=== PATIENT | female | born 1965 | race Caucasian/White ===

== ENCOUNTER → 2017-01-30 | Outpatient (CLI) | payer BC ==
[~2017-01-30] MED LIST: /OMEP10CA PO; FLUO20CA8 PO; NAPR220C PO
[2017-01-30 10:29] LABS: BASO % 0.4 % (0.0-1.0); EOS # 0.1 10^3/uL (0.0-0.50); EOS % 1.5 % (0.0-3.0); IMMATURE GRANULOCYTE % 0.2 % (0-0); LYMPH # 1.7 10^3/uL (1.5-4.5); LYMPH % 32.4 % (24.0-44.0); MEAN CORPUSCULAR HEMOGLOBIN 32.5 pg (27.0-33.0); MEAN CORPUSCULAR HGB CONC 34.3 g/dl (32.0-36.5); MEAN CORPUSCULAR VOLUME 94.8 fl (80.0-96.0); MONO # 0.5 10^3/uL (0.0-0.8); MONO % 9.5 % (0.0-5.0); NEUTROPHILS # 2.9 10^3/uL (1.8-7.7); PLATELET COUNT, AUTOMATED 201 10^3/uL (150-450); RED CELL DISTRIBUTION WIDTH 13.3 % (11.5-14.5); WHITE BLOOD COUNT 5.2 10^3/uL (4.0-10.0)
[2017-01-30 11:13] LABS: ALBUMIN 3.7 GM/DL (3.2-5.2); ALBUMIN/GLOBULIN RATIO 1.16 (1.00-1.93); ALKALINE PHOSPHATASE 91 U/L (45-117); ALT/SGPT 30 U/L (12-78); ANION GAP 7 MEQ/L (8-16); AST/SGOT 18 U/L (7-37); BILIRUBIN,TOTAL 0.5 MG/DL (0.2-1.0); BLOOD UREA NITROGEN 12 MG/DL (7-18); CALCIUM LEVEL 8.7 MG/DL (8.5-10.1); CARBON DIOXIDE LEVEL 29 MEQ/L (21-32); CHLORIDE LEVEL 103 MEQ/L (98-107); CHOLESTEROL LEVEL 187 MG/DL (<200); CREATININE FOR GFR 0.65 MG/DL (0.55-1.02); GLOMERULAR FILTRATION RATE > 60.0 (>58); GLUCOSE, FASTING 91 MG/DL (70-105); POTASSIUM SERUM 4.7 MEQ/L (3.5-5.1); SODIUM LEVEL 139 MEQ/L (136-145); TOTAL PROTEIN 6.9 GM/DL (6.4-8.2); TRIGLYCERIDES LEVEL 75 MG/DL (<150)
[2017-01-30 11:27] LABS: PROLACTIN 6.9 NG/ML
== END ==
LOC: M LAB 09:56
PROVIDERS: ATTEND Family Medicine
DX: Z00.01 Encounter for general adult medical examination with abnormal findings (principal); N92.1 Excessive and frequent menstruation with irregular cycle

== ENCOUNTER → 2017-03-15 | Outpatient (CLI) | payer BC ==
[2017-03-15 12:57] LABS: ANION GAP 5 MEQ/L (8-16); BLOOD UREA NITROGEN 10 MG/DL (7-18); CALCIUM LEVEL 8.6 MG/DL (8.5-10.1); CARBON DIOXIDE LEVEL 27 MEQ/L (21-32); CHLORIDE LEVEL 106 MEQ/L (98-107); CREATININE FOR GFR 0.64 MG/DL (0.55-1.02); GLOMERULAR FILTRATION RATE > 60.0 (>58); GLUCOSE, FASTING 99 MG/DL (70-105); POTASSIUM SERUM 4.5 MEQ/L (3.5-5.1); SODIUM LEVEL 138 MEQ/L (136-145)
== END ==
LOC: M LAB 11:14
DX: F17.210 Nicotine dependence, cigarettes, uncomplicated (principal)
CPT/HCPCS: 80048

== ENCOUNTER 2017-03-19 12:21 | Emergency (ER) | payer BC ==
[2017-03-19] MEDS: METOPROLOL 5 MG/5 ML VIAL IV (13:30)
[2017-03-19] MEDS: ASPIRIN 81 MG CHEW TABLET PO (13:37)
[2017-03-19] MEDS: ALPRAZolam 0.25 MG TAB PO (13:40)
[2017-03-19] MEDS: NITROGLYCERIN 0.4 MG SUBL TABLET SL ×3 (13:41→13:52)
[2017-03-19 13:56] LABS: BASO % 0.6 % (0.0-1.0); EOS % 0.3 % (0.0-3.0); HEMATOCRIT 44.4 % (36.0-47.0); HEMOGLOBIN 15.5 g/dl (12.0-16.0); IMMATURE GRANULOCYTE % 0.3 % (0-0); MEAN CORPUSCULAR HEMOGLOBIN 32.9 pg (27.0-33.0); MEAN CORPUSCULAR HGB CONC 34.9 g/dl (32.0-36.5); MEAN CORPUSCULAR VOLUME 94.3 fl (80.0-96.0); MONO # 0.6 10^3/uL (0.0-0.8); MONO % 8.6 % (0.0-5.0); NEUTROPHILS # 4.5 10^3/uL (1.8-7.7); NEUTROPHILS % 62.2 % (36.0-66.0); PLATELET COUNT, AUTOMATED 208 10^3/uL (150-450); RED BLOOD COUNT 4.71 10^6/uL (4.00-5.40); WHITE BLOOD COUNT 7.2 10^3/uL (4.0-10.0)
[2017-03-19 13:58] LABS: VENOUS HCO3 25.2 MEQ/L (23.0-27.0); VENOUS O2 SATURATION 82.7 % (60.0-80.0); VENOUS PARTIAL PRESSURE CO2 35.3 mmHg (38.0-50.0); VENOUS PARTIAL PRESSURE O2 39.5 mmHg (30.0-50.0); VENOUS PH 7.472 UNITS (7.330-7.430); VENOUS STANDARD HCO3 25.9 MEQ/L; VENOUS TOTAL CO2 26.3 MEQ/L (24.0-28.0)
[2017-03-19 14:06] LABS: NT-PRO BNP 84 PG/ML (<125)
[2017-03-19 14:08] LABS: D-DIMER QUANT 430.9 ng/ml (<500)
[2017-03-19 14:09] LABS: ALBUMIN 4.3 GM/DL (3.2-5.2); ALBUMIN/GLOBULIN RATIO 1.39 (1.00-1.93); ALKALINE PHOSPHATASE 97 U/L (45-117); ALT/SGPT 27 U/L (12-78); ANION GAP 9 MEQ/L (8-16); AST/SGOT 17 U/L (7-37); BILIRUBIN,DIRECT 0.1 MG/DL (0.0-0.2); BILIRUBIN,TOTAL 0.4 MG/DL (0.2-1.0); BLOOD UREA NITROGEN 10 MG/DL (7-18); CALCIUM LEVEL 9.3 MG/DL (8.5-10.1); CARBON DIOXIDE LEVEL 24 MEQ/L (21-32); CHLORIDE LEVEL 103 MEQ/L (98-107); CPK CREATINE PHOSPHOKINASE 57 U/L (26-192); CREATININE FOR GFR 0.77 MG/DL (0.55-1.02); GLOMERULAR FILTRATION RATE > 60.0 (>58); GLUCOSE, FASTING 110 MG/DL (70-105); LIPASE 108 U/L (73-393); POTASSIUM SERUM 4.2 MEQ/L (3.5-5.1); SODIUM LEVEL 136 MEQ/L (136-145); TOTAL PROTEIN 7.4 GM/DL (6.4-8.2); TROPONIN I < 0.02 NG/ML (< 0.10)
[2017-03-19 14:15] LABS: MB/CK RELATIVE INDEX 1.75 (< OR =4)
== END 2017-03-19 16:10 | disposition home or self-care (01) ==
LOC: M ED 12:21
DX: I16.0 Hypertensive urgency (principal); F32.9 Major depressive disorder, single episode, unspecified; F17.210 Nicotine dependence, cigarettes, uncomplicated; Z88.0 Allergy status to penicillin; Z79.899 Other long term (current) drug therapy
CPT/HCPCS: 71046

== ENCOUNTER → 2017-04-16 | Outpatient (CLI) | payer BC | LOC: M RAD 08:54 | DX: R07.2 Precordial pain (principal) ==

== ENCOUNTER 2018-06-17 10:18 | Emergency (ER) | payer BC ==
[~2018-06-17] VITALS: Ht 157.5 cm; Wt 84.1 kg
[~2018-06-17 10:18] MED LIST changes: +AMLO5TAB6 PO; +CLAR10CA3 PO; +LISI10TA4 PO; +OMEP20CA3 PO; +PROZ10CA7 PO
[2018-06-17] MEDS ORDERED: PRIL20TA2 PO (10:31)
[2018-06-17] MEDS ORDERED: ONDANSETRON 4MG/2ML VIAL (J2405) IV ONE (10:45)
[2018-06-17] MEDS ORDERED: MORPHINE 4 MG/ML 1ML VIAL/SYRINGE (J2270) IV ONE (10:45)
[2018-06-17] MEDS ORDERED: NS 1,000 ML IV ONE (10:45)
[2018-06-17 11:26] LABS: BASO % 0.5 % (0.0-1.0); EOS # 0.1 10^3/uL (0.0-0.50); EOS % 0.8 % (0.0-3.0); HEMATOCRIT 43.7 % (36.0-47.0); HEMOGLOBIN 14.9 g/dl (12.0-15.5); LYMPH # 1.6 10^3/uL (1.5-4.5); LYMPH % 18.8 % (24.0-44.0); MEAN CORPUSCULAR HEMOGLOBIN 32.9 pg (27.0-33.0); MEAN CORPUSCULAR HGB CONC 34.1 g/dl (32.0-36.5); MEAN CORPUSCULAR VOLUME 96.5 fl (80.0-96.0); MONO # 0.7 10^3/uL (0.0-0.8); MONO % 8.1 % (0.0-5.0); NEUTROPHILS # 6.2 10^3/uL (1.8-7.7); NEUTROPHILS % 71.5 % (36.0-66.0); PLATELET COUNT, AUTOMATED 194 10^3/uL (150-450); RED BLOOD COUNT 4.53 10^6/uL (4.00-5.40); WHITE BLOOD COUNT 8.6 10^3/uL (4.0-10.0)
[2018-06-17 11:56] LABS: ALBUMIN 3.5 GM/DL (3.2-5.2); ALT/SGPT 64 U/L (12-78); BILIRUBIN,DIRECT 0.1 MG/DL (0.0-0.2); BILIRUBIN,TOTAL 0.4 MG/DL (0.2-1.0); BLOOD UREA NITROGEN 8 MG/DL (7-18); CALCIUM LEVEL 8.6 MG/DL (8.5-10.1); CARBON DIOXIDE LEVEL 27 MEQ/L (21-32); CHLORIDE LEVEL 106 MEQ/L (98-107); CREATININE FOR GFR 0.69 MG/DL (0.55-1.30); GLOMERULAR FILTRATION RATE > 60.0 (>51); GLUCOSE, FASTING 122 MG/DL (70-100); LIPASE 105 U/L (73-393); POTASSIUM SERUM 4.1 MEQ/L (3.5-5.1); SODIUM LEVEL 140 MEQ/L (136-145); TOTAL PROTEIN 6.9 GM/DL (6.4-8.2)
[2018-06-17] MEDS ORDERED: ISOVUE-370 76% 100ML VIAL (Q9967) As Ordered ONE (11:58)
[2018-06-17] MEDS ORDERED: LISINOPRIL 20 MG TAB PO ONE (12:15)
[2018-06-17] MEDS ORDERED: LISI-538 PO (12:46)
[2018-06-17 13:06] VITALS: BP 142/84
[2018-06-17 13:18] VITALS: BP 142/84
[2018-06-17 13:28] LABS: CHLAMYDIA DNA AMPLIFICATION NEGATIVE (NEGATIVE); GC DNA AMPLIFICATION NEGATIVE (NEGATIVE)
--- NOTE | 2018-06-17 13:33 | REP ---
CT of the abdomen and pelvis with IV contrast, without bowel contrast for appendicitis: There are tiny appendicoliths. The appendix is not distended. There is no periappendiceal inflammation or abscess. There is no CT evidence of acute appendicitis. There are no renal calculi. There are no ureteral calculi. There is no hydronephrosis. There is no perinephric stranding. There are no renal masses or cysts. There are no gallbladder calculi. The gallbladder is otherwise unremarkable. The terminal ileum is unremarkable. There is no bowel obstruction. There is no ascites. The mesentery is unremarkable. The bladder is unremarkable. The uterus is unremarkable. There is a 1.7 cm right ovarian follicle versus two adjacent smaller follicles. Left adnexa is unremarkable. The visualized lung schmidt are unremarkable. The hepatic parenchyma, gallbladder, pancreas and spleen are normal size unremarkable. The adrenals are unremarkable. The kidneys are unremarkable. Abdominal aorta is unremarkable. Bowel and mesentery are unremarkable. Pelvis: There is no ascites or adenopathy. The bladder, uterus and left adnexa are unremarkable. Right adnexal cyst as described. Impression: The appendix has a normal appearance by CT. There is a 17 mm right adnexal cyst versus two adjacent smaller cysts. No free fluid in the pelvis. The gallbladder is unremarkable. There is no renolithiasis or ureterolithiasis or hydronephrosis. No bowel obstruction. Otherwise, negative CT of the abdomen and pelvis. Electronically Signed by Hugo Herrera MD 06/17/2018 01:25 P
--- NOTE | 2018-06-17 21:35 | ECGEPIP ---
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
--- NOTE | 2018-06-18 14:19 | ED PDOC ---
Post-Departure Follow-Up [facility] faxed formal report of ct abd/p for fu Dg Patel MD Jun 18, 2018 14:18
== END 2018-06-17 13:25 | disposition home or self-care (01) ==
LOC: M ED 10:18
DX: I10 Essential (primary) hypertension (principal); N83.201 Unspecified ovarian cyst, right side; R10.9 Unspecified abdominal pain; F32.9 Major depressive disorder, single episode, unspecified; K21.9 Gastro-esophageal reflux disease without esophagitis; F17.210 Nicotine dependence, cigarettes, uncomplicated; Z79.899 Other long term (current) drug therapy; Z88.0 Allergy status to penicillin
CPT/HCPCS: 74177; 80048; 80076; 81001; 83690; 85025; 87040; 87210; 87491; 87591; 93005; 96374; 96375; 99284; J2270; J2405; Q9967

== ENCOUNTER 2018-10-27 10:02 | Emergency (ER) | payer BC ==
[~2018-10-27] VITALS: Ht 157.5 cm; Wt 79.5 kg
[~2018-10-27 10:02] MED LIST changes: +LISI-538 PO; -OMEP20CA3 PO; +OMEP20CA4 PO; +PRIL20TA2 PO
[2018-10-27 11:28] LABS: BASO # 0.1 10^3/uL (0.0-0.2); BASO % 0.6 % (0.0-1.0); EOS % 0.1 % (0.0-3.0); HEMATOCRIT 44.6 % (36.0-47.0); HEMOGLOBIN 15.4 g/dl (12.0-15.5); LYMPH % 12.8 % (24.0-44.0); MEAN CORPUSCULAR HEMOGLOBIN 34.2 pg (27.0-33.0); MEAN CORPUSCULAR HGB CONC 34.5 g/dl (32.0-36.5); MEAN CORPUSCULAR VOLUME 99.1 fl (80.0-96.0); MONO # 0.7 10^3/uL (0.0-0.8); MONO % 8.6 % (0.0-5.0); NEUTROPHILS # 6.2 10^3/uL (1.8-7.7); NEUTROPHILS % 77.7 % (36.0-66.0); PLATELET COUNT, AUTOMATED 190 10^3/uL (150-450)
[2018-10-27 11:50] LABS: INR 0.97; PROTHROMBIN TIME 12.6 SECONDS (11.8-14.0)
[2018-10-27 11:51] LABS: PARTIAL THROMBOPLASTIN TIME 32.6 SECONDS (25.0-38.4)
[2018-10-27 12:06] LABS: ALBUMIN 3.7 GM/DL (3.2-5.2); ALT/SGPT 62 U/L (12-78); BILIRUBIN,DIRECT 0.2 MG/DL (0.0-0.2); BILIRUBIN,TOTAL 0.4 MG/DL (0.2-1.0); BLOOD UREA NITROGEN 9 MG/DL (7-18); CALCIUM LEVEL 9.5 MG/DL (8.5-10.1); CARBON DIOXIDE LEVEL 27 MEQ/L (21-32); CHLORIDE LEVEL 103 MEQ/L (98-107); CK-MB VALUE MASS 2.5 NG/ML (<3.6); CPK CREATINE PHOSPHOKINASE 88 U/L (26-192); CREATININE FOR GFR 0.67 MG/DL (0.55-1.30); FREE T4 0.64 NG/DL (0.76-1.46); GLOMERULAR FILTRATION RATE > 60.0 (>51); GLUCOSE, FASTING 109 MG/DL (70-100); LIPASE 125 U/L (73-393); MB/CK RELATIVE INDEX 2.84 (< OR =4); NT-PRO BNP 97 PG/ML (<125); POTASSIUM SERUM 3.9 MEQ/L (3.5-5.1); SODIUM LEVEL 138 MEQ/L (136-145); TOTAL PROTEIN 6.9 GM/DL (6.4-8.2); TROPONIN I < 0.02 NG/ML (< 0.10)
[2018-10-27 13:30] VITALS: BP 141/58
[2018-10-27] MEDS ORDERED: LISI-538 PO (14:01)
--- NOTE | 2018-10-27 15:58 | REP ---
MRA of the brain without contrast Clinical indication: Abnormal CT. Comparison: None Technique: 3D MRA of the brain was performed without contrast. Spin and tumble MIP imaging was obtained. Findings: The distal ICAs, proximal ACAs, MCAs and master electrician are patent. The distal vertebral arteries and basilar artery are patent. The anterior communicating artery is patent. A right posterior communicating artery is patent. The left posterior communicating artery is not seen. There is no evidence of cerebrovascular occlusion or aneurysmal formation. Impression: Normal MRA of the brain without contrast. Electronically Signed by Gabriela Caballero MD 10/27/2018 01:36 P
--- NOTE | 2018-10-27 15:59 | REP ---
MRI of the brain without contrast Indication: Abnormal CT. Comparison: CT head of 10/27/2018. Technique: MRI of the brain was performed without contrast utilizing sagittal T1 FLAIR and axial T2, FLAIR, T1, DWI and gradient imaging. Findings: There is no restricted diffusion to suggest acute ischemia or infarction. Specifically, there is no restricted effusion within the brainstem to correlate with finding on CT, likely artifactual. There is a punctate focus of T2 hyperintensity within the basal ganglia which is nonspecific but could represent a chronic lacunar infarct. There is no mass effect. There is no midline shift or basal cistern effacement. There is no extra-axial fluid collection. The visualized flow voids are patent. There is mild mucosal thickening of the ethmoid air cells bilaterally. There is mild mucosal thickening of the right sphenoid sinus. Impression: No acute ischemia or infarction. Nonspecific white matter changes within the right basal ganglia which could represent chronic lacunar infarct. Electronically Signed by Gabriela Caballero MD 10/27/2018 01:29 P
--- NOTE | 2018-10-27 16:00 | REP ---
CT of the head without contrast Indication: CVA. Comparison: None Technique: Axial CT of the head was performed without contrast. Findings: There is streak artifact related to patient's right earring which partially degrees image quality. Within this limitation, there is no evidence of acute intracranial hemorrhage. There is no mass effect. The ventricles and sulci are symmetric. There is no hydrocephalus. There is a tiny hypodensity within the right basal ganglial which could represent a prominent perivascular space or tiny lacunar infarct. There are mild scattered hypodensities within the periventricular white matter which are nonspecific but suggestive of microvascular ischemic disease. There is a right-sided hypodensity within the elsie which is thought to be related to beam hardening through the posterior fossa. Impression: 1. Hypodensity within the right side elsie which is thought to represent beam hardening artifact however, if posterior fossa stroke is suspected, recommend MRI. No acute intracranial hemorrhage. 2. Tiny hypodensity in the right basal ganglia likely the perivascular space or lacunar infarct. 3. Scattered nonspecific white matter changes. Electronically Signed by Gabriela Caballero MD 10/27/2018 10:57 A
--- NOTE | 2018-10-27 16:56 | REP ---
CHEST, SINGLE VIEW: There is no evidence of acute infiltrate. No pleural effusion is seen. The heart is normal in size. The mediastinal silhouette is unremarkable. The visualized osseous structures are intact. IMPRESSION: No acute pulmonary disease. Electronically Signed by Hugo Ng MD 10/28/2018 11:34 P
--- NOTE | 2018-10-28 08:07 | ECGEPIP ---
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
== END 2018-10-27 14:30 | disposition home or self-care (01) ==
LOC: M ED 10:02
DX: R07.89 Other chest pain (principal); R20.2 Paresthesia of skin; R00.0 Tachycardia, unspecified; R93.0 Abnormal findings on diagnostic imaging of skull and head, not elsewhere classified; I10 Essential (primary) hypertension; F32.9 Major depressive disorder, single episode, unspecified; Z72.0 Tobacco use; Z79.899 Other long term (current) drug therapy; Z88.0 Allergy status to penicillin

== ENCOUNTER → 2018-10-31 | Outpatient (CLI) | payer BC, SELFPAY ==
--- NOTE | 2018-10-31 18:38 | REPVR ---
EXAM: MR Head Without Contrast EXAM DATE/TIME: 10/31/2018 4:47 PM CLINICAL HISTORY: 53 years old, female; Weakness, extremity; Patient HX: Right arm weakness and pain in RT foot for 3 days. PT was seen for same symptoms in ED 3 days prior, images on pacs TECHNIQUE: Imaging protocol: MR of the head without contrast. COMPARISON: MRI-Brain without Contrast 10/27/2018 12:21 PM FINDINGS: Brain: No acute infarct identified on the diffusion weighted imaging. No parenchymal hemorrhage. No evidence of brain parenchymal edema or intracranial mass effect. There is a focal, chronic lacunar infarct in the posterior right lentiform nucleus, as before. Punctate focus of increased signal intensity in the right external capsule may reflect trace chronic small vessel ischemic change, this finding is stable. No significant white matter disease for the patient's age. Ventricles: Stable. No ventriculomegaly. Bones/joints: Unremarkable. Soft tissues: Unremarkable. Sinuses: Trace ethmoid and maxillary sinus mucosal thickening. Tiny right sphenoid sinus retention cyst or polyp. Mastoid air cells: Focal right mastoid fluid. No significant mastoid effusions. Orbits: Unremarkable. IMPRESSION: No evidence of acute infarct. No significant interval change. Electronically signed by: Halle Gore On 10/31/2018 18:38:38 PM
== END ==
LOC: M PLARAD 15:26
PROVIDERS: ATTEND Family Medicine
DX: R29.898 Other symptoms and signs involving the musculoskeletal system (principal)

== ENCOUNTER → 2018-11-07 | Outpatient (REF) | payer BC, OTHER ==
[2018-11-07 13:01] LABS: ALBUMIN 3.7 GM/DL (3.2-5.2); ALT/SGPT 56 U/L (12-78); BILIRUBIN,TOTAL 0.5 MG/DL (0.2-1.0); BLOOD UREA NITROGEN 10 MG/DL (7-18); CALCIUM LEVEL 9.6 MG/DL (8.5-10.1); CARBON DIOXIDE LEVEL 32 MEQ/L (21-32); CHLORIDE LEVEL 103 MEQ/L (98-107); CHOLESTEROL LEVEL 212 MG/DL (<200); CHOLESTEROL RISK RATIO 2.465 (<5); GLOMERULAR FILTRATION RATE > 60.0 (>51); GLUCOSE, FASTING 110 MG/DL (70-100); HDL CHOLESTEROL 86 MG/DL (>40); LDL CHOLESTEROL 112 MG/DL (<100); NON-HDL-C 126 MG/DL; POTASSIUM SERUM 4.7 MEQ/L (3.5-5.1); SODIUM LEVEL 139 MEQ/L (136-145); TOTAL PROTEIN 6.8 GM/DL (6.4-8.2); TRIGLYCERIDES LEVEL 70 MG/DL (<150)
== END ==
LOC: M SFHCPLAZ 08:54
PROVIDERS: ATTEND Family Medicine
DX: Z13.1 Encounter for screening for diabetes mellitus (principal); Z13.220 Encounter for screening for lipoid disorders; R19.7 Diarrhea, unspecified

== ENCOUNTER → 2018-11-26 | Outpatient (REF) | payer BC ==
[~2018-11-26] MED LIST changes: +ASPI-1 PO; +ATOR1TAB21 PO; +PROZ20CA11 PO
[2018-11-26 14:06] LABS: FOLATE 5.7 NG/ML
[2018-12-02 00:14] LABS: ANCA-ATYPICAL <1:20 titer (Neg:<1:20); ANTI DS-DNA AB <1:10 titer (.); ANTI THROMBIN 3 ANTIGEN IMMUNO 86 % (72-124); ANTI THROMBIN 3 FUNCT ACTIVITY 100 % (75-135); ANTINUCLEAR ANTIBODIES DIRECT Negative (Negative); CARDIOLIPIN IGA ANTIBODY <9 APL U/mL (0-11); CARDIOLIPIN IGG ANTIBODY <9 GPL U/mL (0-14); CARDIOLIPIN IGM ANTIBODY 25 MPL U/mL (0-12); CERULOPLASMIN 29.4 mg/dL (19.0-39.0); COPPER PLASMA 135 ug/dL (72-166); CYTOPLASMIC NEUTROP AB ANCA-C <1:20 titer (Neg:<1:20); PERINUCLEAR AB ANCA-P <1:20 titer (Neg:<1:20); PROTEIN C FUNCTIONAL ACTIVITY 108 % (73-180); PROTEIN S FUNCTIONAL ACTIVITY 106 % (63-140); SJOGREN'S ANTI SS-A <0.2 AI (0.0-0.9); SJOGREN'S ANTI SS-B <0.2 AI (0.0-0.9); VITAMIN B1 LEVEL WHOLE BLOOD 102.4 nmol/L (66.5-200.0); VITAMIN B6,PYRIDOXAL PHOSPHATE 8.3 ug/L (2.0-32.8); VITAMIN E(ALPHA TOCOPHEROL) 9.7 mg/L (7.0-25.1); VITAMIN E(GAMMA TOCOPHEROL) 0.9 mg/L (0.5-5.5)
[2018-12-02 09:40] LABS: DRVV SCREEN 38.1 SEC
[2018-12-02 10:06] LABS: PTT LUPUS TYPE ANTICOAG SCREEN 0.9 (0-1.2)
== END ==
LOC: M LABNEURO 09:26
PROVIDERS: ATTEND Psychiatry & Neurology Neurology
DX: R53.1 Weakness (principal); R20.2 Paresthesia of skin

== ENCOUNTER → 2020-04-04 | Outpatient (REF) | payer OTHER ==
[~2020-04-04] MED LIST changes: +AMLO1TAB24 PO; -AMLO5TAB6 PO; +OMEP1CAP73 PO; -OMEP20CA4 PO
[2020-04-04 14:40] LABS: BLOOD UREA NITROGEN 17 MG/DL (7-18); CALCIUM LEVEL 9.7 MG/DL (8.5-10.1); CARBON DIOXIDE LEVEL 32 MEQ/L (21-32); CHLORIDE LEVEL 101 MEQ/L (98-107); CREATININE FOR GFR 0.67 MG/DL (0.55-1.30); GLOMERULAR FILTRATION RATE > 60.0 (>51); GLUCOSE, FASTING 101 MG/DL (70-100); POTASSIUM SERUM 4.6 MEQ/L (3.5-5.1); SODIUM LEVEL 137 MEQ/L (136-145)
== END ==
LOC: M SFHCPLAZ 11:10
PROVIDERS: ATTEND Family Medicine
DX: I10 Essential (primary) hypertension (principal)

== ENCOUNTER → 2021-02-10 | Outpatient (CLI) | payer OTHER ==
[~2021-02-10] MED LIST changes: -LISI-538 PO; +LISI10TA22 PO; -LISI10TA4 PO; +LISI20TA33 PO
[2021-02-10 13:31] LABS: HEMATOCRIT 40.9 % (36.0-47.0); HEMOGLOBIN 13.5 g/dl (12.0-15.5); MEAN CORPUSCULAR HEMOGLOBIN 32.5 pg (27.0-33.0); MEAN CORPUSCULAR VOLUME 98.3 fl (80.0-96.0); PLATELET COUNT, AUTOMATED 238 10^3/uL (150-450); RED BLOOD COUNT 4.16 10^6/uL (4.00-5.40); WHITE BLOOD COUNT 6.9 10^3/uL (4.0-10.0)
[2021-02-10 14:12] LABS: ALBUMIN 3.9 GM/DL (3.2-5.2); ALT/SGPT 22 U/L (12-78); BILIRUBIN,TOTAL 0.2 MG/DL (0.2-1.0); BLOOD UREA NITROGEN 12 MG/DL (7-18); CALCIUM LEVEL 9.4 MG/DL (8.5-10.1); CARBON DIOXIDE LEVEL 30 MEQ/L (21-32); CHLORIDE LEVEL 106 MEQ/L (98-107); CHOLESTEROL LEVEL 206 MG/DL (<200); CHOLESTEROL RISK RATIO 2.783 (<5); CREATININE FOR GFR 0.71 MG/DL (0.55-1.30); GLOMERULAR FILTRATION RATE > 60.0 (>51); GLUCOSE, FASTING 99 MG/DL (70-100); HDL CHOLESTEROL 74 MG/DL (>40); LDL CHOLESTEROL 116 MG/DL (<100); NON-HDL-C 132 MG/DL; POTASSIUM SERUM 4.9 MEQ/L (3.5-5.1); SODIUM LEVEL 140 MEQ/L (136-145); TOTAL PROTEIN 6.6 GM/DL (6.4-8.2); TRIGLYCERIDES LEVEL 80 MG/DL (<150)
[2021-02-10 14:16] LABS: ATYPICAL LYMPH 7 % (0-5); LYMPHOCYTES 22 % (16-44); MONOCYTES 4 % (0-5); NEUTROPHILS 67 % (28-66); PLATELET ESTIMATE NORMAL (NORMAL)
== END ==
LOC: M PLAIMG 10:22
PROVIDERS: ATTEND Nurse Practitioner Family
DX: M51.37 Other intervertebral disc degeneration, lumbosacral region (principal); I10 Essential (primary) hypertension; E78.5 Hyperlipidemia, unspecified

== ENCOUNTER → 2021-04-11 | Outpatient (CLI) | payer OTHER | LOC: M WHC 07:46 | PROVIDERS: ATTEND Nurse Practitioner Family | DX: Z12.31 Encounter for screening mammogram for malignant neoplasm of breast (principal); Z80.3 Family history of malignant neoplasm of breast ==

== ENCOUNTER → 2021-05-17 | Outpatient (REF) | payer OTHER | LOC: M SFHCPLAZ 12:37 | PROVIDERS: ATTEND Physician Assistant | DX: R50.9 Fever, unspecified (principal) ==

== ENCOUNTER → 2021-06-02 | Outpatient (CLI) | payer OTHER ==
[~2021-06-02] MED LIST changes: +APAP325T4 PO; +FLUO40CA PO; +FLUTISP; +OMEP40CA5 PO
== END ==
LOC: M RAD 07:05
PROVIDERS: ATTEND Physician Assistant Medical
DX: R10.10 Upper abdominal pain, unspecified (principal); R16.2 Hepatomegaly with splenomegaly, not elsewhere classified

== ENCOUNTER → 2021-06-05 | Outpatient (CLI) | payer OTHER | LOC: M LABSMTC 09:19 | PROVIDERS: ATTEND Anesthesiology | DX: Z20.828 Contact with and (suspected) exposure to other viral communicable diseases (principal); Z11.59 Encounter for screening for other viral diseases ==

== ENCOUNTER 2021-06-09 06:45 | Day surgery (SDC) | payer OTHER ==
[~2021-06-09] VITALS: Ht 157.5 cm; Wt 87.5 kg
[~2021-06-09 06:45] MED LIST changes: +NS 1,000 ML IV ONE
[2021-06-09] MEDS ORDERED: fentaNYL 100 MCG/2 ML INJECTION As Ordered ONE (07:12)
[2021-06-09] MEDS ORDERED: LIDOCAINE 2% 100MG/5ML SDV (FOR ANES.) As Ordered ONE (07:12)
[2021-06-09] MEDS ORDERED: propofoL 200 MG/20 ML VIAL As Ordered ONE ×2 (07:12→08:02)
[2021-06-09 08:45] VITALS: BP 181/79
== END 2021-06-09 08:50 | disposition home or self-care (01) ==
LOC: M OPP 06:45
PROVIDERS: ATTEND Internal Medicine Gastroenterology
DX: Z12.11 Encounter for screening for malignant neoplasm of colon (principal); Z80.0 Family history of malignant neoplasm of digestive organs; K63.5 Polyp of colon; K64.8 Other hemorrhoids; K22.89 Other specified disease of esophagus; K44.9 Diaphragmatic hernia without obstruction or gangrene; K22.2 Esophageal obstruction; K29.50 Unspecified chronic gastritis without bleeding; Z88.0 Allergy status to penicillin; Z80.41 Family history of malignant neoplasm of ovary; Z80.3 Family history of malignant neoplasm of breast; Z79.82 Long term (current) use of aspirin; F17.210 Nicotine dependence, cigarettes, uncomplicated; Z86.73 Personal history of transient ischemic attack (TIA), and cerebral infarction without residual deficits
CPT/HCPCS: 43239; 45385; 88104; 88305; 88312; J3010

== ENCOUNTER → 2021-08-04 | Outpatient (CLI) | payer OTHER ==
[~2021-08-04] MED LIST changes: -NS 1,000 ML IV ONE
[2021-08-04 11:48] LABS: BLOOD UREA NITROGEN 13 MG/DL (7-18); CALCIUM LEVEL 9.3 MG/DL (8.5-10.1); CARBON DIOXIDE LEVEL 29 MEQ/L (21-32); CHLORIDE LEVEL 103 MEQ/L (98-107); CREATININE FOR GFR 0.64 MG/DL (0.55-1.30); GLOMERULAR FILTRATION RATE > 60.0 (>51); GLUCOSE, FASTING 96 MG/DL (70-100); POTASSIUM SERUM 4.4 MEQ/L (3.5-5.1); SODIUM LEVEL 138 MEQ/L (136-145)
== END ==
LOC: M PLALAB 09:04
PROVIDERS: ATTEND Family Medicine
DX: Z12.4 Encounter for screening for malignant neoplasm of cervix (principal); I10 Essential (primary) hypertension; R87.610 Atypical squamous cells of undetermined significance on cytologic smear of cervix (ASC-US)

== ENCOUNTER → 2022-05-04 | Outpatient (CLI) | payer OTHER ==
[2022-05-04 14:42] LABS: ALBUMIN 3.9 G/DL (3.2-5.2); ALKALINE PHOSPHATASE 100 U/L (46-116); ALT/SGPT 25 U/L (7.0-40); AST/SGOT 15 U/L (<34); BILIRUBIN,TOTAL 0.3 MG/DL (0.3-1.2); BLOOD UREA NITROGEN 10 MG/DL (9-23); CARBON DIOXIDE LEVEL 33 MMOL/L (20-31); CHLORIDE LEVEL 101 MMOL/L (98-107); CHOLESTEROL LEVEL 176 MG/DL (<200); CHOLESTEROL RISK RATIO 2.65 (<5); CREATININE FOR GFR 0.59 MG/DL (0.55-1.30); GLOMERULAR FILTRATION RATE > 60.0 (>51); GLUCOSE, FASTING 102 MG/DL (60-100); HDL CHOLESTEROL 66.2 MG/DL (>40); LDL CHOLESTEROL 93.6 MG/DL (<100); NON-HDL-C 110 MG/DL; POTASSIUM SERUM 4.8 MMOL/L (3.5-5.1); SODIUM LEVEL 137 MMOL/L (136-145); THYROID STIMULATING HORMONE 0.725 uIU/ML (0.55-4.78); TOTAL PROTEIN 6.9 G/DL (5.7-8.2); TRIGLYCERIDES LEVEL 81 MG/DL (<150)
[2022-05-04 14:43] LABS: BASO # 0.1 10^3/uL (0.0-0.2); BASO % 0.5 % (0.0-1.0); EOS # 0.1 10^3/uL (0.0-0.5); EOS % 0.8 % (0.0-3.0); HEMATOCRIT 45.2 % (36.0-47.0); HEMOGLOBIN 14.8 g/dl (12.0-15.5); LYMPH # 2.5 10^3/uL (1.5-5.0); LYMPH % 25.6 % (24.0-44.0); MEAN CORPUSCULAR HEMOGLOBIN 33.1 pg (27.0-33.0); MEAN CORPUSCULAR HGB CONC 32.7 g/dl (32.0-36.5); MEAN CORPUSCULAR VOLUME 101.1 fl (80.0-96.0); MONO # 0.8 10^3/uL (0.0-0.8); NEUTROPHILS # 6.4 10^3/uL (1.5-8.5); NEUTROPHILS % 64.9 % (36.0-66.0); PLATELET COUNT, AUTOMATED 231 10^3/uL (150-450); RED BLOOD COUNT 4.47 10^6/uL (4.00-5.40); WHITE BLOOD COUNT 9.8 10^3/uL (4.0-10.0)
[2022-05-07 08:37] LABS: VITAMIN B12 LEVEL 549 PG/ML (211-911)
== END ==
LOC: M PLALAB 10:34
PROVIDERS: ATTEND Physician Assistant
DX: R10.11 Right upper quadrant pain (principal); D75.89 Other specified diseases of blood and blood-forming organs; Z13.220 Encounter for screening for lipoid disorders

== ENCOUNTER → 2022-05-21 | Outpatient (CLI) | payer OTHER | LOC: M WHC 07:29 | PROVIDERS: ATTEND Physician Assistant | DX: R10.11 Right upper quadrant pain (principal) ==

== ENCOUNTER → 2022-05-31 | Outpatient (CLI) | payer OTHER | LOC: M RAD 07:17 | PROVIDERS: ATTEND Physician Assistant | DX: Z12.2 Encounter for screening for malignant neoplasm of respiratory organs (principal); F17.200 Nicotine dependence, unspecified, uncomplicated ==

== ENCOUNTER 2022-07-12 10:57 | Day surgery (SDC) | payer OTHER ==
[~2022-07-12] VITALS: Ht 157.5 cm; Wt 88.9 kg
[~2022-07-12 10:57] MED LIST changes: +FLUT50SP17; -FLUTISP; +NS 1,000 ML IV ONE
[2022-07-12] MEDS ORDERED: fentaNYL 100 MCG/2 ML INJECTION As Ordered ONE (12:47)
[2022-07-12] MEDS ORDERED: propofoL 200 MG/20 ML VIAL As Ordered ONE ×2 (12:47→12:55)
[2022-07-12] MEDS ORDERED: LIDOCAINE 2% 100MG/5ML SDV (FOR ANES.) As Ordered ONE (12:47)
[2022-07-12 13:25] VITALS: BP 145/79
== END 2022-07-12 13:50 | disposition home or self-care (01) ==
LOC: M OPP 10:57
PROVIDERS: ATTEND Internal Medicine Gastroenterology
DX: Z86.010 Personal history of colon polyps (principal); D12.6 Benign neoplasm of colon, unspecified; Z80.0 Family history of malignant neoplasm of digestive organs; K64.4 Residual hemorrhoidal skin tags; K64.8 Other hemorrhoids; K57.30 Diverticulosis of large intestine without perforation or abscess without bleeding; K44.9 Diaphragmatic hernia without obstruction or gangrene; K22.89 Other specified disease of esophagus; K22.2 Esophageal obstruction; K31.89 Other diseases of stomach and duodenum; F17.200 Nicotine dependence, unspecified, uncomplicated; Z79.82 Long term (current) use of aspirin; Z79.899 Other long term (current) drug therapy; Z88.0 Allergy status to penicillin
CPT/HCPCS: 43239; 43249; 45385; 88305; J3010

== ENCOUNTER → 2022-10-31 | Outpatient (CLI) | payer OTHER ==
[~2022-10-31] MED LIST changes: -NS 1,000 ML IV ONE
== END ==
LOC: M PLAIMG 12:34
PROVIDERS: ATTEND Physician Assistant
DX: M25.471 Effusion, right ankle (principal)

== ENCOUNTER → 2022-11-09 | Outpatient (CLI) | payer OTHER | LOC: M PLAIMG 14:21 | PROVIDERS: ATTEND Physician Assistant | DX: M79.671 Pain in right foot (principal) ==

== ENCOUNTER → 2022-12-14 | Outpatient (CLI) | payer OTHER ==
[~2022-12-14] MED LIST changes: +GASTROGRAFIN SOLUTION 30ML As Ordered ONE; +ISOVUE-370 76% 100ML VIAL As Ordered ONE
== END ==
LOC: M RAD 12:00
PROVIDERS: ATTEND Physician Assistant
DX: R10.817 Generalized abdominal tenderness (principal)
CPT/HCPCS: 74160; Q9963; Q9967

== ENCOUNTER → 2022-12-18 | Outpatient (REF) | payer OTHER ==
[~2022-12-18] MED LIST changes: -GASTROGRAFIN SOLUTION 30ML As Ordered ONE; -ISOVUE-370 76% 100ML VIAL As Ordered ONE
== END ==
LOC: M SFHCDERM 18:16
PROVIDERS: ATTEND Nurse Practitioner Family
DX: D49.2 Neoplasm of unspecified behavior of bone, soft tissue, and skin (principal)

== ENCOUNTER → 2023-09-16 | Outpatient (REF) | payer OTHER ==
[~2023-09-16] MED LIST changes: -FLUT50SP17; +FLUTISP
== END ==
LOC: M SFHCDERM 18:06
PROVIDERS: ATTEND Nurse Practitioner Family
DX: I78.1 Nevus, non-neoplastic (principal); R23.8 Other skin changes

== ENCOUNTER → 2023-12-18 | Outpatient (REF) | payer OTHER ==
[2023-12-20 14:37] LABS: HPV APTIMA Not Detected (Not Detected)
== END ==
LOC: M SFHCWAGY 13:13
PROVIDERS: ATTEND Nurse Practitioner Family
DX: Z12.4 Encounter for screening for malignant neoplasm of cervix (principal)

== ENCOUNTER → 2024-01-09 | Outpatient (CLI) | payer OTHER | LOC: M WHC 08:05 | PROVIDERS: ATTEND Nurse Practitioner Family | DX: Z12.31 Encounter for screening mammogram for malignant neoplasm of breast (principal) ==

== ENCOUNTER → 2024-03-26 | Outpatient (CLI) | payer OTHER ==
[2024-03-26 17:23] LABS: ALBUMIN 4.1 G/DL (3.2-5.2); ALKALINE PHOSPHATASE 83 U/L (35-104); ALT/SGPT 23 U/L (7.0-40); AST/SGOT 17 U/L (<34); BILIRUBIN,TOTAL 0.4 MG/DL (0.3-1.2); BLOOD UREA NITROGEN 11 MG/DL (9-23); CALCIUM LEVEL 9.5 MG/DL (8.5-10.1); CARBON DIOXIDE LEVEL 30 MMOL/L (20-31); CHLORIDE LEVEL 101 MMOL/L (98-107); CHOLESTEROL LEVEL 213 MG/DL (<200); CHOLESTEROL RISK RATIO 2.84 (<5); CREATININE FOR GFR 0.61 MG/DL (0.55-1.30); GLOMERULAR FILTRATION RATE > 60.0 (>51); GLUCOSE, FASTING 99 MG/DL (60-100); HDL CHOLESTEROL 74.8 MG/DL (>40); LDL CHOLESTEROL 122.6 MG/DL (<100); NON-HDL-C 138.2 MG/DL; POTASSIUM SERUM 4.6 MMOL/L (3.5-5.1); SODIUM LEVEL 138 MMOL/L (136-145); TOTAL PROTEIN 7.5 G/DL (5.7-8.2); TRIGLYCERIDES LEVEL 78 MG/DL (<150)
[2024-03-26 17:37] LABS: BASO % 0.6 % (0.0-1.0); EOS % 0.6 % (0.0-3.0); HEMATOCRIT 46.1 % (36.0-47.0); HEMOGLOBIN 15.9 g/dl (12.0-15.5); LYMPH # 2.1 10^3/uL (1.5-5.0); LYMPH % 30.7 % (24.0-44.0); MEAN CORPUSCULAR HEMOGLOBIN 34.2 pg (27.0-33.0); MEAN CORPUSCULAR HGB CONC 34.5 g/dl (32.0-36.5); MEAN CORPUSCULAR VOLUME 99.1 fl (80.0-96.0); MONO # 0.5 10^3/uL (0.0-0.8); NEUTROPHILS # 4.1 10^3/uL (1.5-8.5); NEUTROPHILS % 59.8 % (36.0-66.0); RED BLOOD COUNT 4.65 10^6/uL (4.00-5.40); WHITE BLOOD COUNT 6.8 10^3/uL (4.0-10.0)
[2024-03-26 17:38] LABS: PLATELET COUNT, AUTOMATED 97 10^3/uL (150-450)
== END ==
LOC: M LRY 08:07
PROVIDERS: ATTEND Registered Nurse
DX: I10 Essential (primary) hypertension (principal); Z13.220 Encounter for screening for lipoid disorders

== ENCOUNTER 2024-04-15 10:29 | Emergency (ER) | payer OTHER ==
[~2024-04-15] VITALS: Ht 160 cm; Wt 84.9 kg
[2024-04-15] MEDS ORDERED: ROSU10TA61 (10:37)
[2024-04-15] MEDS ORDERED: ESCITALOPRAM (10:37)
[2024-04-15] MEDS ORDERED: ASPI81CH33 PO (10:37)
[2024-04-15] MEDS: IBUPROFEN 600MG TAB PO ONE (13:01)
[2024-04-15] MEDS ORDERED: LIDO5DIS41 TOP (14:10)
[2024-04-15 14:28] VITALS: BP 190/90; TEMP 97.4; O2SAT 100
== END 2024-04-15 14:33 | disposition home or self-care (01) ==
LOC: M ED 10:29
DX: S39.012A Strain of muscle, fascia and tendon of lower back, initial encounter (principal); D17.72 Benign lipomatous neoplasm of other genitourinary organ; W00.0XXA Fall on same level due to ice and snow, initial encounter; I10 Essential (primary) hypertension; Z88.0 Allergy status to penicillin; Z79.82 Long term (current) use of aspirin; Z79.1 Long term (current) use of non-steroidal anti-inflammatories (NSAID); Z79.899 Other long term (current) drug therapy; Y92.9 Unspecified place or not applicable; Y93.89 Activity, other specified; Y99.9 Unspecified external cause status

== ENCOUNTER → 2024-04-20 | Outpatient (CLI) | payer OTHER ==
[~2024-04-20] MED LIST changes: +ASPI81CH33 PO; +ESCITALOPRAM; +LIDO5DIS41 TOP; +ROSU10TA61
== END ==
LOC: M PLAIMG 15:23
PROVIDERS: ATTEND Student in an Organized Health Care Education/Training Program
DX: M54.41 Lumbago with sciatica, right side (principal)

== ENCOUNTER → 2024-05-04 | Outpatient (CLI) | payer OTHER | LOC: M RAD 08:02 | PROVIDERS: ATTEND Nurse Practitioner Family | DX: Z12.2 Encounter for screening for malignant neoplasm of respiratory organs (principal); F17.210 Nicotine dependence, cigarettes, uncomplicated ==

== ENCOUNTER → 2024-06-04 | Outpatient (CLI) | payer OTHER | LOC: M CARPUL 08:42 | PROVIDERS: ATTEND Registered Nurse | DX: R06.02 Shortness of breath (principal); I71.40 Abdominal aortic aneurysm, without rupture, unspecified ==

== ENCOUNTER → 2024-06-11 | Outpatient (CLI) | payer OTHER, MEDICAID | LOC: M WHC 12:29 | PROVIDERS: ATTEND Family Medicine | DX: M54.50 Low back pain, unspecified (principal); Z53.9 Procedure and treatment not carried out, unspecified reason ==

== ENCOUNTER → 2024-06-11 | Outpatient (CLI) | payer OTHER | LOC: M WHC 12:08 | PROVIDERS: ATTEND Family Medicine | DX: M54.50 Low back pain, unspecified (principal); R22.2 Localized swelling, mass and lump, trunk ==

== ENCOUNTER → 2024-10-21 | Outpatient (CLI) | payer OTHER ==
[~2024-10-21] MED LIST changes: +LIDO1ADH93 TOP; -LIDO5DIS41 TOP; +PROZ10CA11 PO; -PROZ10CA7 PO; -PROZ20CA11 PO; +PROZ20CA12 PO
[2024-10-21 11:52] LABS: PLATELET COUNT, AUTOMATED 220 10^3/uL (150-450)
[2024-10-21 12:02] LABS: ALT/SGPT 23 U/L (7.0-40); AST/SGOT 20 U/L (<34); C REACTIVE PROTEIN QUANTITATIV < 0.50 MG/DL (<1.0); CALCIUM LEVEL 9.5 MG/DL (8.5-10.1); CARBON DIOXIDE LEVEL 30 MMOL/L (20-31); CHLORIDE LEVEL 100 MMOL/L (98-107); CREATININE FOR GFR 0.66 MG/DL (0.55-1.30); GLOMERULAR FILTRATION RATE > 90.0 (>51); IRON (FE) 162 UG/DL (50-170); PERCENT SATURATION 42.0 % (13.2-45.0); POTASSIUM SERUM 5.2 MMOL/L (3.5-5.1); RHEUMATOID FACTOR QUANT 50.4 IU/ML (<14); SODIUM LEVEL 137 MMOL/L (136-145)
[2024-10-21 12:03] LABS: TOTAL 25(OH) VITAMIN D 14.8 NG/ML (20.0-100.0)
[2024-10-21 12:04] LABS: FREE T4 0.86 NG/DL (0.89-1.76); VITAMIN B12 LEVEL 402 PG/ML (211-911)
[2024-10-21 12:27] LABS: ESTIMATED AVERAGE GLUCOSE 103.0 MG/DL (60-110)
[2024-10-21 12:30] LABS: ATYPICAL LYMPH 10 % (0-5); LYMPHOCYTES 16 % (16-44); MONOCYTES 11 % (0-5); NEUTROPHILS 63 % (28-66); PLATELET ESTIMATE NORMAL (NORMAL)
[2024-10-21 16:30] LABS: ERYTHROCYTE SEDIMENTATION RATE 23 mm/hr (0-30)
== END ==
LOC: M PLALAB 08:17
PROVIDERS: ATTEND Nurse Practitioner Family
DX: I10 Essential (primary) hypertension (principal); Z13.1 Encounter for screening for diabetes mellitus; R53.83 Other fatigue

== ENCOUNTER → 2024-12-16 | Outpatient (CLI) | payer OTHER | LOC: M PLAIMG 12:20 | PROVIDERS: ATTEND Nurse Practitioner Family | DX: R06.2 Wheezing (principal); R09.89 Other specified symptoms and signs involving the circulatory and respiratory systems ==